=== PATIENT | female | born 1945 | race Caucasian/White ===

== ENCOUNTER 2018-04-18 11:26 | Day surgery (SDC) | payer BC, OTHER ==
[~2018-04-18 11:26] MED LIST: Acetaminophen TAB* 325 MG PO PRN; Buffered Lidocaine 0.9% SYRIN* 5 ML/SYR SYRINGE INTRADERM ONE
[2018-04-18] MEDS ORDERED: Midazolam* 1 MG/ML 2 ML VIAL (2 MG) ONE ×2 (14:24→14:41)
[2018-04-18 14:58] VITALS: BP 136/64
--- NOTE | 2018-04-18 15:32 | OP ---
DATE OF OPERATION/DATE OF DICTATION: 04/18/2018 - [facility] DATE OF : 1945. SURGEON: Dr. Ramana Whiting. SENIOR PRODUCTION SUPERVISOR: None. ANESTHESIA: Topical with intravenous sedation. PRE-OP DIAGNOSIS: Cataract, left eye. POST-OP DIAGNOSIS: Cataract, left eye. OPERATIVE PROCEDURE: Phacoemulsification and cataract extraction with posterior chamber intraocular lens implant, left eye. COMPLICATIONS: None. BLOOD LOSS: None. DESCRIPTION OF PROCEDURE: The patient was brought to the operating room and received a small amount of intravenous sedation. A drop of Tetracaine was placed in her left eye. She was prepped and draped in the usual sterile fashion for ophthalmic surgery and attention was directed to the left eye where a speculum was placed. A paracentesis was created at the 5 o'clock position and 0.1 cc of 1 percent preservative-free Lidocaine was injected into the anterior chamber followed by DisCoVisc. The eye was digitally stabilized while a 2.75 mm keratome was used to create a triplanar clear corneal incision at the 3 o'clock position. A continuous curvilinear capsulorrhexis was created with a cystotome and Utrata forceps. BSS on a cannula was used to hydrodissect the lens from the capsule. Phacoemulsification was performed in a divide-and- conquer technique to create four fragments which were removed. Residual cortical material was removed with irrigation and aspiration. DisCoVisc was used to inflate the capsular bag and an AUOOTO 10.0 diopter lens was folded and inserted into the capsular bag. DisCoVisc was removed using irrigation and aspiration. BSS on a cannula was used to hydrate the corneal stroma and seal the wound. At the end of the case the pupil was round and the lens was centered. The eye was of normal pressure and the wound was water tight. The speculum was removed and topical Maxitrol ointment was placed on the surface of the eye. The eye was closed, patched and shielded and the patient was sent to the recovery room in stable condition with post operative instructions and follow-up appointment given. [id number] #: [id number] MTDD
[2018-04-18] MEDS ORDERED: Neomycin/Polymy/Dex OPHTH.OIN* 3.5 GM ONE (15:33)
[2018-04-18] MEDS ORDERED: Tropicamide 1% OPTH.SOL* BTL ONE (15:33)
[2018-04-18] MEDS ORDERED: Lidocaine 1%* 5 ML VIAL ONE (15:33)
[2018-04-18] MEDS ORDERED: Cyclopentolate 1% OPTH.SOL* 2 ML BTL ONE (15:33)
[2018-04-18] MEDS ORDERED: Phenylephrine 2.5% OPTH.SOL* 2 ML BTL ONE (15:33)
[2018-04-18] MEDS ORDERED: Tetracaine 0.5% OPTH.SOL 4 ML* 1 DROP BTL ONE (15:34)
[2018-04-18] MEDS ORDERED: Ketorolac 0.5% OPHTH (NF) 0.5 % 5 ML BTL ONE (15:34)
== END 2018-04-18 15:06 | disposition home or self-care (01) ==
LOC: OREAST 11:26
PROVIDERS: ATTEND Ophthalmology
DX: H25.12 Age-related nuclear cataract, left eye (principal); Z87.891 Personal history of nicotine dependence; E03.9 Hypothyroidism, unspecified; F41.8 Other specified anxiety disorders
CPT/HCPCS: A9270-GY; J2250; V2632

== ENCOUNTER → 2018-04-25 09:42 | Day surgery (SDC) | payer BC, OTHER ==
[~2018-04-25 09:42] MED LIST changes: +Cyclopentolate 1% OPTH.SOL* 2 ML BTL ONE; +Ketorolac 0.5% OPHTH (NF) 0.5 % 5 ML BTL ONE; +Lidocaine 1%* 5 ML VIAL ONE; +Midazolam* 1 MG/ML 2 ML VIAL (2 MG) ONE; +Neomycin/Polymy/Dex OPHTH.OIN* 3.5 GM ONE; +Phenylephr/Ketorolac 1%/0.3% OPH DROP BTL ONE; +Phenylephrine 2.5% OPTH.SOL* 2 ML BTL ONE; +Tetracaine 0.5% OPTH.SOL 4 ML* 1 DROP BTL ONE; +Tropicamide 1% OPTH.SOL* BTL ONE; +fentaNYL* 50 MCG/ML 2 ML VIAL (100 MCG VIAL) ONE
[2018-04-25 12:50] VITALS: BP 130/74
--- NOTE | 2018-04-25 21:15 | OP ---
DATE OF OPERATION: 04/25/18 [facility] DATE OF : [birth year] SURGEON: Dr. Ramana Whiting. TEST ENGINEERING INTERN: None. ANESTHESIA: Topical with intravenous sedation. PRE-OP DIAGNOSIS: Cataract, right eye. POST-OP DIAGNOSIS: Cataract, right eye. OPERATIVE PROCEDURE: Phacoemulsification and cataract extraction with posterior chamber intraocular lens implant, right eye. COMPLICATIONS: None. BLOOD LOSS: None. DESCRIPTION OF PROCEDURE: The patient was brought to the operating room and received a small amount of intra-venous sedation. A drop of tetracaine was placed in her right eye. She was prepped and draped in the usual sterile fashion for ophthalmic surgery and attention was directed to the right eye where a speculum was placed. A paracentesis was created at the 11 o'clock position and 0.1 cc of 1 percent preservative-free lidocaine was injected into the anterior chamber followed by DisCoVisc. The eye was digitally stabilized while a 2.75 mm keratome was used to create a triplanar clear corneal incision at the 9 o'clock position. A continuous curvilinear capsulorrhexis was created with a cystotome and Utrata forceps. BSS on a cannula was used to hydrodissect the lens from the capsule. Phacoemulsification was performed in a divide-and- conquer technique to create four fragments which were removed. Residual cortical material was removed with irrigation and aspiration. DisCoVisc was used to inflate the capsular bag and an AU00T0 10.0 diopter lens was folded and inserted into the capsular bag. DisCoVisc was removed using irrigation and aspiration. BSS on a cannula was used to hydrate the corneal stroma and seal the wound. At the end of the case the pupil was round and the lens was centered. The eye was of normal pressure and the wound was water tight. The speculum was removed and topical Maxitrol ointment was placed on the surface of the eye. The eye was closed, patched and shielded and the patient was sent to the recovery room in stable condition with post operative instructions and follow-up appointment given. [id number]/CPS #: [id number] ANGELICA
== END | disposition home or self-care (01) ==
LOC: OREAST 09:42
PROVIDERS: ATTEND Ophthalmology
DX: Z01.818 Encounter for other preprocedural examination (principal); H25.11 Age-related nuclear cataract, right eye; E05.90 Thyrotoxicosis, unspecified without thyrotoxic crisis or storm; F32.9 Major depressive disorder, single episode, unspecified; Z88.8 Allergy status to other drugs, medicaments and biological substances
CPT/HCPCS: A9270-GY; C9447; J2250; J3010; V2632